=== PATIENT | female | born 1990 | race Caucasian/White ===

== ENCOUNTER 2020-01-16 06:37 | Emergency (ER) | payer OTHER, SELFPAY ==
--- NOTE | ~2020-01-16 | XR_ITS ---
EXAMINATION: XR chest 2V DATE: 01/16/2020 07:54 INDICATION: Cough. TECHNIQUE: Frontal and lateral views of the chest were obtained. COMPARISON: Chest 2 views 02/03/2019 FINDINGS: The chest demonstrates clear lungs without pneumonia, pleural effusion, or pneumothorax. Th e heart size is normal. IMPRESSION: 1. No acute cardiopulmonary disease. Reviewed, dictated and finalized at location A. [employer]
[2020-01-16 06:42] VITALS: BP 144/88; PULSE 112; RESP 19; TEMP 37.5; O2SAT 100
[2020-01-16 07:00] VITALS: BP 131/85; PULSE 108; RESP 20; TEMP 37.5; O2SAT 98
--- NOTE | 2020-01-16 07:11 | ED.GENADULT ---
HPI - General Adult General Chief complaint: Upper Respiratory Infection Stated complaint: sore throat Time Seen by Provider: 01/16/20 07:10 History of Present Illness HPI narrative: Patient is a 29 y/o female complaining of sorethroat and cough starting 3 days ago. She states that throat soreness is bilateral but worse on right side. She rates it as 7/10. It's aggravated by eating and drinking. She also noticed fever of 101 at work earlier today, but she took Ibuprofen prior to arrival. Related Data Allergies Allergy/AdvReac Type Severity Reaction Status Date / Time aspirin Allergy Mild Rash Verified 01/16/20 07:04 Review of Systems Constitutional: Constitutional: Reports chills, Reports fever(s), Denies headache(s) and Denies weakness Eyes: Eyes: Denies blurry vision ENT: Denies headache(s), Denies neck pain and Reports sore throat Cardiovascular: Cardiovascular: Denies chest pain and Denies dyspnea Respiratory: Respiratory: Reports cough and Denies dyspnea Gastrointestinal: Gastrointestinal: Denies abdominal pain, Denies diarrhea, Denies nausea and Denies vomiting Genitourinary: Genitourinary: Denies hematuria and Denies dysuria Musculoskeletal: Musculoskeletal: Denies back pain and Denies neck pain Neurologic: Denies headache(s) and Denies weakness [facility] Social History Social History Gender identity (if verbalized by the patient): Female Exam Const: General: no acute distress and well developed Orientation/consciousness: oriented to person, oriented to place, oriented to time and patient oriented x3 HENMT: Head: normocephalic Ears: external ears normal General nose exam: Normal external nose present Throat: posterior oropharynx normal and no peritonsillar masses Eyes: General: appearance normal, both eyes and all related structures Conjunctivae: conjunctivae normal Neck: Neck: normal visual inspection and full ROM Chest: Chest palpation & inspection: normal inspection of the chest and no tenderness Resp: Effort & Inspection: normal respiratory effort Auscultation: clear to auscultation bilaterally Cardio: Rate: tachycardic Rhythm: regular rhythm GI: GI Palp: No abdominal tenderness and Yes Soft to palpation Skin: General skin exam: normal color and turgor normal Neuro: General: oriented to person, oriented to place, oriented to time and patient oriented x3 Cognition (Neuro): normal cognition Extrem: General: normal to inspection, full ROM and no pedal edema Psych: Appearance: grossly normal Mental Status: mental status grossly normal Affect: normal affect Course Vital Signs Vital signs: Vital Signs Temperature 37.5 C 01/16/20 06:42 Pulse Rate 112 H 01/16/20 06:42 Respiratory Rate 19 01/16/20 06:42 Blood Pressure 144/88 H 01/16/20 06:42 Pulse Oximetry 100 01/16/20 06:42 Temperature 37.5 C 01/16/20 07:00 Pulse Rate 100 01/16/20 09:05 Respiratory Rate 18 01/16/20 09:05 Blood Pressure 112/76 01/16/20 09:05 Pulse Oximetry 98 01/16/20 09:05 Medical Decision Making MDM Narrative Medical decision making narrative: Antiviral is not prescribed because onset was more than 2 days ago. Vital Signs Vital Signs: Vital Signs Temperature 37.5 C 01/16/20 06:42 Pulse Rate 112 H 01/16/20 06:42 Respiratory Rate 19 01/16/20 06:42 Blood Pressure 144/88 H 01/16/20 06:42 Pulse Oximetry 100 01/16/20 06:42 Temperature 37.5 C 01/16/20 07:00 Pulse Rate 100 01/16/20 09:05 Respiratory Rate 18 01/16/20 09:05 Blood Pressure 112/76 01/16/20 09:05 Pulse Oximetry 98 01/16/20 09:05 Lab Data Labs: Lab Results 01/16/20 Range/Units 08:19 Urine Color Yellow (Yellow) Urine Appearance Cloudy H (Clear) Urine pH 6.0 (5.0-9.0) Ur Specific [place] 1.008 (1.001-1.035) Urine Protein Negative (Negative) mg/dL Urine Glucose (UA) Negative (Negative) mg/dL Urine Ketones Negative (Negative) mg/dL Ur Blood (Man)
[2020-01-16 08:32] LABS: Add Urine Microscopic? YES; Appearance Urine Cloudy (Clear); Bacteria Urine Trace /hpf; Bilirubin Urine Negative (Negative); Blood Urine 1+ (Negative); Color Urine Yellow (Yellow); Glucose Urine UA Negative (Negative); Ketones Urine Negative (Negative); Leukocyte Esterase Ur Trace LEU/UL (Negative); Mucus Urine Rare /lpf; Nitrate Urine Negative (Negative); Protein Urine Negative (Negative); RBC Urine 0-2 /hpf (0-2); Specific Grav Ur 1.008 (1.001-1.035); Squamous Epithelial Cell Urine Many /hpf (Few); Urobilinogen Urine Negative mg/dL (<2.0)
[2020-01-16 09:05] VITALS: BP 112/76; PULSE 100; RESP 18; O2SAT 98
== END 2020-01-16 09:06 | disposition home or self-care (01) ==
PROVIDERS: Emergency Provider Emergency Medicine; PCP Nurse Practitioner Adult Health
DX: J10.1 Influenza due to other identified influenza virus with other respiratory manifestations (principal)
CPT/HCPCS: 71046; 81001; 81025; 87081; 87086; 87088; 87804; 87880; 99283

== ENCOUNTER 2023-12-28 13:22 | Emergency (ER) | payer SELFPAY ==
[2023-12-28 13:28] VITALS: BP 144/79; PULSE 83; RESP 18; TEMP 37; O2SAT 100
--- NOTE | 2023-12-28 13:53 | ED.GENADULT ---
HPI - General Adult General Chief complaint: Unspecified Stated complaint: Swelling of Face and Hands/Headache/Vomiting Time Seen by Provider: 12/28/23 13:53 Source: patient Mode of arrival: ambulatory Limitations: no limitations History of Present Illness HPI narrative: 33-year-old female presents with multiple complaints. Patient reports swelling and joint pain to bilateral hands, wrists, ankles and feet for the past several months. Reports abdominal bloating feels full quickly for the past month. Reports recent fatigue. No URI symptoms. No abdominal pain. Afebrile. No urinary symptoms. Having normal bowel movements. No chest pain or shortness of breath. Patient has not scheduled appointment with her primary care physician. Patient states she left work early today because symptoms started to concern her. All systems reviewed and negative except as noted above. Related Data Home Medications Medication Instructions Recorded Confirmed No Home Medications 12/28/23 12/28/23 Allergies Allergy/AdvReac Type Severity Reaction Status Date / Time aspirin Allergy Mild Rash Verified 05/05/22 13:13 Review of Systems Review of Systems: CONSTITUTIONAL: Denies fever, chills, or sweats. EYES: Denies visual changes, redness, or discharge. ENT: Denies rhinorrhea, congestion, sore throat, or otalgia. CARDIOVASCULAR: Denies chest pain, palpitations, or edema. RESPIRATORY: Denies cough or dyspnea. GASTROINTESTINAL: Denies abdominal pain, nausea, vomiting, or diarrhea. Reports abdominal bloating , feeling of fullness. GENITOURINARY: Denies dysuria or hematuria. SKIN: Denies rash or itching. MUSCULOSKELETAL: Denies back pain or myalgia. Reports joint pain and swelling to hands and feet. NEUROLOGIC: Denies headache, numbness, or weakness. PSYCHIATRIC: Denies anxiety or depression. All other systems reviewed are negative, except as documented in HPI. PMFSH Social History Social History (System 05/05/22 @ 13:13 by Yunier Bosch) Gender identity (if verbalized by the patient): Female Comments At time of signature, agree with nursing past medical, surgical, social and family history. There is no relevant family history pertinent to the presenting complaint. Exam Narrative: GENERAL: This is a well-nourished, well-developed patient, in no apparent distress. HEAD: normocephalic, atraumatic. EYES: PERRL. Sclera clear/white. Vision is grossly intact. EARS: External ears normal, auditory canals clear and without drainage, TMs normal without perforation. Hearing grossly intact. NOSE: External nose normal with no obvious nasal discharge, nares without redness, no rhinorrhea. THROAT: Mucous membranes moist, posterior pharynx clear. NECK: Neck supple, non-tender without lymphadenopathy, masses or thyromegaly. CARDIOVASCULAR: Regular rate and rhythm without murmurs, gallops, or rubs. RESPIRATORY: Clear to auscultation. Breath sounds equal bilaterally. No wheezes, rales, or rhonchi. GASTROINTESTINAL: Abdomen soft, non-tender, nondistended. Bowel sounds are active. No hepato-splenomegaly, or palpable masses. No guarding. SKIN: warm, Dry, intact with no suspicious lesions or rash, good texture and turgor. NEURO: awake, alert, and oriented to person, place and time. There were no obvious focal neurologic abnormalities. EXTREMITIES: No joint tenderness, effusion, or edema noted. No calf tenderness. Negative Homans sign bilaterally. BACK: Nontender without deformity. No CVA tenderness. Course Course Level of Care: Express Care Visit Vital Signs Vital signs: Vital Signs Temperature 37.0 C 12/28/23 13:28 Pulse Rate 83 12/28/23 13:28 Respiratory Rate 18 12/28/23 13:28 Blood Pressure 144/79 H 12/28/23 13:28 Pulse Oximetry 100 12/28/23 13:28 Temperature 37.0 C 12/28/23 13:28 Pulse Rate 83 12/28/23 13:28 Respiratory Rate 18 12/28/23 13:28 Blood Pressure 144/79 H 12/28/23 13:28 Pulse Oximetry
== END 2023-12-28 14:03 | disposition home or self-care (01) ==
PROVIDERS: Emergency Provider Nurse Practitioner Family; PCP Family Medicine
DX: R14.0 Abdominal distension (gaseous) (principal); M25.442 Effusion, left hand; M25.441 Effusion, right hand; M25.432 Effusion, left wrist; M25.431 Effusion, right wrist; M25.472 Effusion, left ankle; M25.471 Effusion, right ankle
CPT/HCPCS: 99202; G0463